=== PATIENT | female | born 1940 | race Caucasian/White ===

== ENCOUNTER → 2016-07-24 | Outpatient (CLI) | payer OTHER ==
[~2016-07-24] MED LIST: ARTHRITIS PAIN650 M2 PO; CALCIUM + D 6001 TA1 PO; LOPID600 MG PO; METHIMAZOLE10 MG PO; NICOTINE T1 PATCH .2 TOP; PERCOCET5/325 PO; PREMARIN PO; PREMARIN0.625 MG PO; RANITIDINE HCL150 M1 PO; SIMVASTATIN40 MG PO; TAPAZOLE10 MG PO; ZANTAC PO; ZOCOR PO
--- NOTE | ~2016-07-24 | MY11 ---
[facility] A Service [facility] RADIOLOGY TEXT RESULTS PATIENT: JEOVANY JACINTO LOCATION: [facility] : 38 UNIT #: [id number] AGE: [address]: EDY ELLIS MD (INT MED) SEX: F ORDER DR: [id number] [facility] [address] [place], [place] [address] [id number] O MR#: [id number] Acc #: [id number] NAME: JEOVANY JACINTO : 1940 SEX: F STUDY DATE/TIME: 07/24/2016 12:50 UNIT: [facility] ROOM: STUDY DESCRIPTION: MY Mammogram Screening [place] Attending Physician: Edy Ellis M.D. Ordering Physician: Edy Ellis M.D. Primary Care Physician: Edy Ellis M.D. MEDICAL IMAGING REPORT This report is preliminary unless electronic signature is present EXAM Digital screening mammogram 07/24/2016 HISTORY 75-year-old woman, new baseline mammogram. No risk elevation. COMPARISON Unknown date, location. FINDINGS Digital imaging of each breast was completed utilizing screening protocol. Mole markers were placed on each breast. Review includes FDA-approved CAD device. Breast parenchyma is moderately dense with subareolar duct prominence noted. Benign calcifications are present in each breast. There are no suspicious mass characteristics and no suspicious microcalcifications. There is no architectural distortion. IMPRESSION Benign mammogram. Annual screening recommended. BIRADS II Patients over the age of 40 are entered into a reminder system with target due date for the next mammogram. A result letter will also be sent to the patient. BIRADS: 2 - Benign finding Dictated by... Kristofer Beltran M.D. THIS IS AN ELECTRONICALLY VERIFIED REPORT Kristofer Beltran M.D. at 07/27/2016 8:09 AM [facility] A Service [facility] RADIOLOGY TEXT RESULTS PATIENT: JEOVANY JACINTO LOCATION: [facility] : 38 UNIT #: [id number] AGE: [address]: EDY ELLIS MD (INT MED) SEX: F ORDER DR: TD: 07/24/2016 16:26 JOB #: [id number] MEDICAL IMAGING REPORT Page 1 of 1 COPY
--- NOTE | ~2016-07-24 | US136 ---
[facility] A Service of [facility] & [facility] RADIOLOGY TEXT RESULTS PATIENT: JEOVANY JACINTO LOCATION: [facility] : 38 UNIT #: [id number] AGE: [address]: EDY ELLIS MD (INT MED) SEX: F ORDER DR: [id number] [facility] [address] [place], [place] [address] [id number] O MR#: [id number] Acc #: [id number] NAME: JEOVANY JACINTO : 1940 SEX: F STUDY DATE/TIME: 07/24/2016 13:23 UNIT: [facility] ROOM: STUDY DESCRIPTION: U/L Ext Art Study Ltd Bil Attending Physician: Edy Ellis M.D. Ordering Physician: Edy Ellis M.D. Primary Care Physician: Edy Ellis M.D. MEDICAL IMAGING REPORT This report is preliminary unless electronic signature is present EXAM Bilateral lower extremity JIMMY HISTORY Peripheral arterial disease FINDINGS The right brachial pressure is 126 and left is 119. Right dorsalis pedis pressure is 111, posterior tibial is 128 for an JIMMY of 1.02 and a first toe pressure of 27 mmHg. Left dorsalis pedis pressure is 99, posterior tibial is 102 for an JIMMY of 0.81 and a first toe pressure of 56 mmHg. PVR waveform at the ankle level are intact and symmetric bilaterally. First digital waveforms are diminished at the right first toe as compared to the normal-appearing left first toe waveform. Arterial waveforms show biphasic waveforms at the right posterior tibial artery and monophasic at the right dorsalis pedis artery. There is biphasic waveform at the left dorsalis pedis artery and monophasic at the left posterior tibial artery. IMPRESSION 1. No arterial insufficiency of the right lower extremity with diminished perfusion in the first toe consistent with small vessel disease. 2. Mild arterial insufficiency of the left lower extremity with adequate perfusion of the first toe. Dictated by... Maxwell Alvarez M.D. THIS IS AN ELECTRONICALLY VERIFIED REPORT Maxwell Alvarez M.D. at 07/29/2016 7:11 AM [facility] A Service of [facility] & [facility] RADIOLOGY TEXT RESULTS PATIENT: JEOVANY JACINTO LOCATION: [facility] : 38 UNIT #: [id number] AGE: [address]: EDY ELLIS MD (INT MED) SEX: F ORDER DR: Barbara TD: 07/24/2016 23:56 JOB #: [id number] MEDICAL IMAGING REPORT Page 1 of 1 COPY
== END | disposition home or self-care (01) ==
LOC: CWCC 12:27
DX: Z12.31 Encounter for screening mammogram for malignant neoplasm of breast (principal); I73.9 Peripheral vascular disease, unspecified
CPT/HCPCS: 93922; G0202